=== PATIENT | male | born 2000 | race Caucasian/White ===

== ENCOUNTER 2021-05-06 | Emergency (ER) | payer OTHER | END 2021-05-06 21:36 | disposition home or self-care (01) | DX: U07.1 COVID-19 (principal) ==

== ENCOUNTER 2024-10-31 14:26 | Outpatient (CLI) | payer OTHER | END 2024-10-31 14:27 | disposition home or self-care (01) | LOC: SCSRAD 14:26 | PROVIDERS: ATTEND Physician Assistant | DX: S29.9XXA Unspecified injury of thorax, initial encounter (principal) ==